=== PATIENT | female | born 2000 | race Hispanic/Latino ===

== ENCOUNTER 2019-03-29 16:13 | Emergency (ER) | payer BC, MEDICAID ==
[2019-03-29] MEDS ORDERED: Ketorolac Tromethamine 30 MG/ML VIAL ONE (17:31)
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
== END 2019-03-29 17:47 | disposition home or self-care (01) ==
LOC: ERS 16:13
DX: S39.012A Strain of muscle, fascia and tendon of lower back, initial encounter (principal); S16.1XXA Strain of muscle, fascia and tendon at neck level, initial encounter; S76.012A Strain of muscle, fascia and tendon of left hip, initial encounter; V43.52XA Car driver injured in collision with other type car in traffic accident, initial encounter
CPT/HCPCS: 71046; J1885

== ENCOUNTER 2019-10-28 09:50 | Outpatient (CLI) | payer OTHER ==
--- NOTE | 2019-10-28 11:20 | ULT ---
ULTRASOUND OBSTETRICAL COMPLETE: DATE: 10/28/2019 HISTORY: 18-year-old female ICD-10: "Z 34.02, encounter for supervision of normal first , second trim lisha. Complete anatomy/size and dates/cervical length" FINDINGS: number: arita lie: Breech Maternal cervix: 5 cm. Closed. Placenta: Posterior. No placenta previa. Amniotic fluid volume: COURTNEY = 10 cm heart rate: 139 bpm The following anatomy is visualized, with no evidence of anomalies: Head, cerebellum, lateral ventricles, four-chamber heart, stomach, kidneys, cord insertion, bladder, cervical spine, thoracic spine, lumbar spine, sacrum, nose and lips, upper extremities, lower extremities, and three-vessel cord. biometry: Biparietal diameter (BPD): 4.6 cm 20 w 0 d Head circumference (HC): 18.2 cm 20 w 5 d Abdominal circumference (AC): 15.9 cm 21 w 0 d Femur length (FL): 3.6 cm 21 w 2 d Average ultrasound age (AUA): 20 w 6 d Estimated date of delivery (JERI): 03/10/2020 Estimated weight (EFW): 394 g +/- 58 g IMPRESSION: 1) Live 2nd trimester intrauterine gestation. 2) Estimated gestational age of 20 weeks, 6 days 3) breech lie. 4) no anatomic abnormality identified.
== END 2019-10-28 09:51 | disposition home or self-care (01) ==
LOC: BICULT 09:50
PROVIDERS: ATTEND Family Medicine
DX: Z34.02 Encounter for supervision of normal first pregnancy, second trimester (principal); Z3A.20 20 weeks gestation of pregnancy; O32.1XX0 Maternal care for breech presentation, not applicable or unspecified
CPT/HCPCS: 76805

== ENCOUNTER 2020-03-01 14:35 | Inpatient (IN) | payer OTHER ==
[~2020-03-01 14:35] MED LIST: Bupivacaine/Epinephrine 0.25% 30 ML VIAL ONE
[2020-03-01 15:39] VITALS: BMI 34.5
[2020-03-01] MEDS: Lactated Ringer's 1,000 ML IV SCH ×2 (15:44→17:38)
[2020-03-01] MEDS ORDERED: Butorphanol Tartrate 1 MG/ML VIAL ONE (15:54)
[2020-03-01 16:00] LABS: Mean Corpuscular Hemoglobin 25.3 pg (27.0-31.0); Mean Corpuscular Volume 76.9 fL (78.0-98.0); Mean Platelet Volume 9.1 fL (7.4-10.4); Platelet Count 215 thou/uL (130-400); RBC Distribution Width 14.5 % (11.5-14.5); Red Blood Cell (RBC) Count 4.73 mill/uL (4.20-5.40); White Blood Cell (WBC) Count 10.6 thou/uL (4.8-10.8)
[2020-03-01] MEDS ORDERED: hydrALAZINE 20 MG/ML VIAL SLOW IVP PRN (16:20)
[2020-03-01] MEDS ORDERED: Ibuprofen 800 MG TAB PO PRN (16:20)
[2020-03-01] MEDS ORDERED: Promethazine HCl 25 MG/ML VIAL IM PRN ×2 (16:20→17:02)
[2020-03-01] MEDS ORDERED: Methylergonovine 0.2 MG/ML VIAL IM PRN (16:20)
[2020-03-01] MEDS ORDERED: Diphenoxylate HCl/Atropine Tablet PO PRN (16:20)
[2020-03-01] MEDS ORDERED: Ondansetron PF 4 MG/2 ML Vial IVP PRN ×2 (16:20→17:02)
[2020-03-01] MEDS ORDERED: HYDROcodone/Acetaminophen 5/325 mg Tablet PO PRN (16:20)
[2020-03-01] MEDS ORDERED: NS / Oxytocin 40 units/1000ml 1,000 ML IV PRN (16:20)
[2020-03-01] MEDS ORDERED: Butorphanol Tartrate 1 MG/ML VIAL SLOW IVP PRN (16:20)
[2020-03-01] MEDS ORDERED: Carboprost 250 MCG/ML AMP IM PRN (16:20)
[2020-03-01] MEDS ORDERED: Lidocaine 1% (PF) 30 ML VIAL SC PRN (16:20)
[2020-03-01] MEDS ORDERED: NS w/ Oxytocin 10 units 500 ML IV SCH ×2 (16:30)
[2020-03-01] MEDS ORDERED: Acetaminophen 325 MG TAB PO PRN (17:02)
[2020-03-01] MEDS ORDERED: Lactated Ringer's 500 ML IV PRN (17:02)
[2020-03-01] MEDS ORDERED: diphenhydrAMINE 50 MG/ML VIAL IVP PRN (17:02)
[2020-03-01] MEDS ORDERED: Naloxone HCl 0.4 mg/ml Vial IVP PRN ×2 (17:02)
[2020-03-01] MEDS ORDERED: EPHEDRINE 25 MG/5 ML SYRINGE SLOW IVP PRN (17:02)
[2020-03-01 17:03] LABS: HBSAg Index 0.14 S/CO (0-0.99); Hep B Surf Ag Non-Reactive S/CO (NonReactive)
[2020-03-01] MEDS ORDERED: Fentanyl 4 mcg/Bupivacaine 0.1% Cassette 100 ML EPIDURAL SCH (17:15)
[2020-03-01] MEDS ORDERED: Communication Order-Pharmacy FS SCH (17:15)
[2020-03-01 17:32] LABS: Syphilis Antibody Nonreactive (Nonreactive); Syphilis Antibody Index 0.01 S/CO (<1.00 Non-Reactive)
[2020-03-01] MEDS ORDERED: NS / Oxytocin 40 units/1000ml 1,000 ML ONE (22:09)
[2020-03-01] MEDS ORDERED: Lidocaine 1% (PF) 30 ML VIAL ONE (22:09)
[2020-03-02] MEDS ORDERED: Milk Of Magnesia 30 ML UDCUP PO PRN (02:52)
[2020-03-02] MEDS ORDERED: Promethazine HCl 25 MG/ML VIAL IM PRN (02:52)
[2020-03-02] MEDS ORDERED: Ondansetron PF 4 MG/2 ML Vial IVP PRN (02:52)
[2020-03-02] MEDS ORDERED: Lanolin Ointment 7 GM TUBE TOP PRN (02:52)
[2020-03-02] MEDS ORDERED: NS / Oxytocin 40 units/1000ml 1,000 ML IV SCH (02:52)
[2020-03-02] MEDS ORDERED: Preparation H Ointment 28 GM TUBE PR PRN (02:52)
[2020-03-02] MEDS ORDERED: Bisacodyl 10 MG SUPP PR PRN (02:52)
[2020-03-02] MEDS ORDERED: HYDROcodone/Acetaminophen 5/325 mg Tablet PO PRN ×2 (02:52)
[2020-03-02] MEDS ORDERED: hydrALAZINE 20 MG/ML VIAL SLOW IVP PRN (02:52)
[2020-03-02] MEDS ORDERED: diphenhydrAMINE 25 MG CAP PO PRN (02:52)
[2020-03-02] MEDS ORDERED: Benzocaine-Menthol 82.5 ML CAN TOP PRN (02:52)
[2020-03-02] MEDS: Ibuprofen 800 MG TAB PO SCH ×3 (03:31→22:25)
[2020-03-02 06:07] LABS: Hemoglobin 10.2 g/dL (12.0-16.0); Mean Corpuscular HGB CONC 32.5 g/dL (32.0-36.0); Mean Corpuscular Hemoglobin 25.3 pg (27.0-31.0); Mean Corpuscular Volume 77.9 fL (78.0-98.0); Mean Platelet Volume 9.3 fL (7.4-10.4); Platelet Count 185 thou/uL (130-400); RBC Distribution Width 14.6 % (11.5-14.5); Red Blood Cell (RBC) Count 4.01 mill/uL (4.20-5.40); White Blood Cell (WBC) Count 15.1 thou/uL (4.8-10.8)
[2020-03-02] MEDS ORDERED: Adacel (T-DAP) 0.5 ML SYRINGE IM ONE (09:00)
[2020-03-02] MEDS ORDERED: FLU VACC QS2020-21(6MOS UP)/PF 60 MCG/0.5 ML SYRINGE IM ONE (09:45)
[2020-03-02] MEDS: Ferrous Sulfate 325 MG TAB PO SCH ×2 (10:14→17:36)
[2020-03-02] MEDS: Prenatal Vitamin 1 TAB PO SCH (10:16)
[2020-03-02] MEDS: Docusate Calcium (SURFAK) 240 MG CAP PO SCH ×2 (10:16→22:25)
[2020-03-02 11:02] LABS: SARS-CoV-2 MS2 Positive; SARS-CoV-2 N Gene Negative; SARS-CoV-2 S Gene Negative; SARS-CoV-2 by NAA Not Detected (NotDetected); SARS-CoV-2 orf1ab Negative
[2020-03-03] MEDS: Ibuprofen 800 MG TAB PO SCH ×2 (05:17→14:00)
[2020-03-03] MEDS: Ferrous Sulfate 325 MG TAB PO SCH ×2 (08:25→15:18)
[2020-03-03] MEDS: Docusate Calcium (SURFAK) 240 MG CAP PO SCH (08:31)
[2020-03-03] MEDS: Prenatal Vitamin 1 TAB PO SCH (08:31)
[2020-03-03 08:44] VITALS: BP 115/69; TEMP 98.2
== END 2020-03-03 16:40 | disposition home or self-care (01) | DRG 807 ==
LOC: L&D/OP 14:35 → L&D 16:20 → 3SW 03-02 02:59
PROVIDERS: ADMIT Family Medicine; ATTEND Family Medicine
PROC: 10E0XZZ Delivery of Products of Conception, External Approach (ICD-10-PCS; principal; 2020-03-01)
PROC: 0UQMXZZ Repair Vulva, External Approach (ICD-10-PCS; 2020-03-01)
DX: O77.0 Labor and delivery complicated by meconium in amniotic fluid (principal); Z37.0 Single live birth; Z3A.39 39 weeks gestation of pregnancy; O69.81X0 Labor and delivery complicated by cord around neck, without compression, not applicable or unspecified; O71.82 Other specified trauma to perineum and vulva; Z20.828 Contact with and (suspected) exposure to other viral communicable diseases
CPT/HCPCS: 36415; 51702; 85027; 86780; 86850; 86900; 86901; 87340; 87635; 99285; J0595; J2590; U0003

== ENCOUNTER 2023-04-25 15:05 | Emergency (ER) | payer OTHER, SELFPAY | END 2023-04-25 16:20 | disposition home or self-care (01) | LOC: ERS 15:05 | DX: R05.1 Acute cough (principal); B97.4 Respiratory syncytial virus as the cause of diseases classified elsewhere | CPT/HCPCS: 99283 ==